=== PATIENT | female | born 1935 | race Caucasian/White ===

== ENCOUNTER 2023-10-02 15:27 | Outpatient (AMB) | payer OTHER, SELFPAY ==
--- NOTE | 2023-10-02 16:03 | A.OFFVIS_ITS ---
Intake Intake Visit Reasons: recurrent UTIs Intake Note: New Patient presents for initial visit for recurrent uti's Urology Medications: Oxybutynin Blood Thinner: none Metal Roaster Required: No Accompanied by: Self / Same As Patient Allergies Amoxicillin Allergy (Uncoded 10/02/23 22:44) Unknown Augmentin Allergy (Uncoded 10/02/23 22:44) Hives Medication List - Last Reconciled 10/02/23 by DALY Gillette-RUSTAM ascorbic acid (vitamin C) 1 g PO DAILY aspirin 81 mg PO DAILY cholecalciferol (vitamin D3) 125 mcg PO DAILY cranberry 500 mg PO DAILY d-mannose mg PO mecobalamin (vitamin B12) 3,000 mcg PO DAILY methenamine hippurate 1 g PO BID oxybutynin chloride ER 5 mg PO DAILY pravastatin 20 mg PO DAILY prednisolone acetate 1% drps ophthalmic (eye) sertraline mg PO yucca caps PO HPI HPI Comments History of Present Illness Details Yoselyn is a very pleasant 87-year-old female patient of . She has a past medical history of pyelonephritis, overactive bladder, osteoporosis, depression, nephrolithiasis, memory impairment, hyperparathyroidism, hyperlipidemia, breast cancer, balance disorder, recurrent urinary tract infections and abdominal aortic aneurysm. She presents to the office today as a new patient for recurrent urinary tract infections. In discussion with the patient today she reports to be doing and feeling well. She reports previously following up with [facility] however is looking to establish new urological care. She discusses having no urinary issues or concerns at this time however has a longstanding history of recurrent urinary tract infections and has since been on methenamine and vitamin-C which has helped substantially. She discusses her last urinary tract infection was in February of last year. She does report intermittent issues with overactive bladder however feels since being on oxybutynin 5 mg daily symptoms have improved. Discussed trial of other of medication given patient's age and beers criteria however patient declines at this time. This was discussed at length. She otherwise denies hematuria, dysuria, foul smelling urine, changes to urinary stream, flank pain, fever, and or chills. She is happy with her current voiding parameters. In office urinalysis results reviewed with the patient today. PVR 0 mL. She discusses typically her symptoms of urinary tract infections are hallucinations. She denies having had these in the last several months. She otherwise offers no other issues or concerns at this time. [facility] Medical History (Updated 10/02/23 @ 23:01 by FRANCISCO Gillette) Pyelonephritis Palpitations Overactive bladder Osteoporosis Major depression in partial remission Left ureteral stone Kidney stone Isolated memory impairment Impaired fasting glucose Hyperparathyroidism Hyperlipidemia History of breast cancer Fuchs' corneal dystrophy Balance disorder Abdominal aortic aneurysm Review of Systems Const Reports as per HPI Eyes Reports no additional complaints ENT Reports no additional complaints Card Reports as per HPI Resp Reports no additional complaints GI Reports no additional complaints Reports as per HPI Musc Reports as per HPI Neuro Reports as per HPI Psych Reports as per HPI Endo Reports as per HPI Jeffrey/Lymph Reports no additional complaints Aller/Immun Reports no additional complaints Physical Exam Const General: cooperative, healthy appearing, comfortable, no acute distress, well developed, alert and awake Orientation/consciousness: patient oriented x3 HEENT Head: Yes normal to inspection, Yes normocephalic and Yes atraumatic Ears: hearing grossly normal bilaterally Eyes General: appearance normal, both eyes and all related structures Neck Neck: Yes normal visual inspection and Yes trachea midline Chest Chest palpation & inspection: normal inspection of the chest Resp Effort & Inspection: normal respiratory effort and able to speak in complete sentences Cardio Rate: regular rate GI Inspection: Yes normal to inspection General: Yes no CVA tenderness Back/Spine/Pelvis Back: no CVA tenderness Skin General skin exam: no rashes or lesions noted Neuro General: patient oriented x3 Extrem General: Yes normal to inspection Psych Appearance: grossly normal and well kempt Mental Status: mental status grossly normal Speech and movement: Normal speech and movement present and Clear speech present Affect: normal affect Attitude: cooperative Thought process: Normal thought process present Thought content: Normal thought content present Insight: Fair insight present (Psych) Judgement: Fair judgement present (Psych) Office Procedures Post Void Residual Post Residual Void Post Void Residual (PVR): 0 [id number] Void Residual by ultrasound Results AMB Urinalysis, Automated UA Leukoctes 0 Malvin/uL Last Edit by Claudia Nielson on 10/02/23 16:19 UA Nitrite Negative Last Edit by Claudia Nielson on 10/02/23 16:19 UA Urobilinogen 0.2 mg/dL Last Edit by Claudia Nielson on 10/02/23 16:19 UA Protein 0 mg/dL Last Edit by Claudia Luosami on 10/02/23 16:19 UA pH 6.0 Last Edit by Claudia Luosami on 10/02/23 16:19 UA Blood 0 Jermaine/uL Last Edit by Claudia Luosami on 10/02/23 16:19 UA Specific Clio 1.015 Last Edit by Lucyamanuel Pujasami on 10/02/23 16:19 UA Ketone Negative Last Edit by Claudia Luosami on 10/02/23 16:19 UA Bilirubin 0 mg/dL Last Edit by Claudia Luosami on 10/02/23 16:19 UA Glucose 0 mg/dL Last Edit by Samjeet Pujasami on 10/02/23 16:19 Results Reviewed Results Reviewed: Laboratory Last Values Urine pH (Auto) 6.0 10/02/23 16:07 Specific Clio (Auto) 1.015 10/02/23 16:07 Urine Protein (Auto) 0 mg/dL 10/02/23 16:07 Glucose (UA)(Auto) 0 mg/dL 10/02/23 16:07 Urine Ketones (Auto) Negative 10/02/23 16:07 Urine Blood (Auto) 0 Jermaine/uL 10/02/23 16:07 Urine Nitrite (Auto) Negative 10/02/23 16:07 Urine Bilirubin (Auto) 0 mg/dL 10/02/23 16:07 Urine Urobilinogen (Auto) 0.2 mg/dL 10/02/23 16:07 Leukocyte Esterase (Auto) 0 Malvin/uL 10/02/23 16:07 Assessment & Plan Assessment & Plan (1) Recurrent urinary tract infection: Code(s): N39.0 - Urinary tract infection, site not specified (2) Kidney stone: Code(s): N20.0 - Calculus of kidney Plan In office urinalysis results reviewed with the patient today; as noted above. Patient currently denies any bothersome urinary issues or concerns. Discussed at length potential causes of nephrolithiasis as well as recurrent urinary tract infections. Continue methenamine, vitamin-C, and D mannose. Discuss trial of other overactive bladder medication given age and beers criteria however patient declines at this time; this was discussed at length. Discussed UTI prevention with D mannose supplement, vitamin-C, increasing fluid intake, behavioral therapy with timed voiding, perineal hygiene and postcoital voiding, and management of constipation with stool softeners and increased fiber intake. Discussed near future retroperitoneal ultrasound for further assessment evaluation and given patient's history of nephrolithiasis. Follow-up in 3 months with PVR; or sooner with any issues, concerns, and or questions. Orders: Orders AMB Post Void Residual by ultrasound Today Z13.9 - Encounter for screening, unspecified AMB Urinalysis Automated Today Z13.9 - Encounter for screening, unspecified Patient Instructions: The patient had an opportunity to ask questions regarding the treatment plan. All questions were answered. Physical exam, labs, and imaging were discussed and reviewed in detail. As well as risks, benefits, and discussion of treatment choices. No major barriers to understanding were identified. The patient expressed understanding and agreement with the above treatment plan. The patient was made aware they should contact our office by phone for worsening of their current condition, the appearance of new symptoms, or with any questions or concerns. Compliance is encouraged with any medications and follow up testing that is ordered. It is a privilege to be allowed the opportunity to participate in? your urological care.? Again, if you have any questions or concerns If you have any questions or concerns please do not hesitate to contact me. The office is [phone]. This note is constructed using voice recognition software. While every effort has been made to ensure accuracy global regulatory affairs manager errors may have been included. Yours sincerely, FRANCISCO Gillette Coding Level of Care Code New Pt Level 3 (38876) Diagnoses Recurrent urinary tract infection N39.0 Kidney stone N20.0 CPT Codes Post Residual Void - PVR CPT Code: 16377-Atrs Void Residual by ultrasound ([id number])
== END 2023-10-02 16:34 | disposition home or self-care (01) ==
PROVIDERS: PCP Physician Assistant; Visit Provider Nurse Practitioner Family
DX: N39.0 Urinary tract infection, site not specified (principal); N20.0 Calculus of kidney
CPT/HCPCS: 99203

== ENCOUNTER → 2023-10-02 15:27 | Outpatient (BNVA) | payer OTHER, SELFPAY | PROVIDERS: PCP Physician Assistant; Visit Provider Nurse Practitioner Family | DX: N39.0 Urinary tract infection, site not specified (principal); N20.0 Calculus of kidney | CPT/HCPCS: 51798; 81003 ==

== ENCOUNTER 2024-01-01 10:43 | Outpatient (AMB) | payer OTHER, SELFPAY ==
--- NOTE | 2024-01-01 10:47 | MHC.OFFVIS ---
Intake Visit Reasons: 3m/PVR Intake Note: Patient presents for follow up visit for recurrent uti's Urology Medications: Oxybutynin, methenamine, vitamin c Blood Thinner: aspirin PVR: 0ml's Associate Director Regulatory Affairs Required: No Accompanied by: Self / Same As Patient Allergies Amoxicillin Allergy (Uncoded 01/01/24 10:59) Unknown Augmentin Allergy (Uncoded 01/01/24 10:59) Hives Medication List - Last Reconciled 01/01/24 by DALY Gillette-RUSTAM ascorbic acid (vitamin C) 1 g PO DAILY aspirin 81 mg PO DAILY cholecalciferol (vitamin D3) 125 mcg PO DAILY cranberry 500 mg PO DAILY d-mannose mg PO mecobalamin (vitamin B12) 3,000 mcg PO DAILY oxybutynin chloride ER 5 mg PO DAILY pravastatin 20 mg PO DAILY prednisolone acetate 1% drps ophthalmic (eye) sertraline mg PO yucca caps PO HPI Comments Details: Yoselyn is a very pleasant 88-year-old female patient of Dr. Chowdary. She has a past medical history of pyelonephritis, overactive bladder, osteoporosis, depression, nephrolithiasis, memory impairment, hyperparathyroidism, hyperlipidemia, breast cancer, balance disorder, recurrent urinary tract infections and abdominal aortic aneurysm. She presents to the office today for a follow up of her recurrent UTIs. In discussion with the patient today she reports having stopped methenamine as she read the side effects and does not wish to take this medication. She continues with D mannose and vitamin-C. She is unsure if she has a urinary tract infection at this time. Unable to obtain urine for urinalysis and PVR 0 mL. Discussed obtaining urinalysis for further assessment and evaluation. She does report intermittent issues with overactive bladder however feels since being on oxybutynin 5 mg daily symptoms have improved. Discussed trial of other of medication given patient's age and beers criteria however patient declines at this time. This was discussed at length. She denies hematuria, dysuria, foul smelling urine, changes to urinary stream, flank pain, fever, and or chills. She is happy with her current voiding parameters. She discusses typically her symptoms of urinary tract infections are hallucinations and sticky pubic hairs. However, she reports since her initial UTI 4 years ago she now suffers from hallucinations as a baseline. She discusses since her last office visit here seeking emergency room care at which time she was diagnosed with colitis. She otherwise offers no other issues or concerns at this time. [facility] Medical History Pyelonephritis Palpitations Overactive bladder Osteoporosis Major depression in partial remission Left ureteral stone Kidney stone Isolated memory impairment Impaired fasting glucose Hyperparathyroidism Hyperlipidemia History of breast cancer Fuchs' corneal dystrophy Balance disorder Abdominal aortic aneurysm Review of Systems Const Reports as per HPI Eyes Reports no additional complaints ENT Reports no additional complaints Card Reports as per HPI Resp Reports no additional complaints GI Reports no additional complaints Reports as per HPI Musc Reports as per HPI Neuro Reports as per HPI Psych Reports as per HPI Endo Reports as per HPI Jeffrey/Lymph Reports no additional complaints Aller/Immun Reports no additional complaints Physical Exam Const General: cooperative, healthy appearing, comfortable, no acute distress, well developed, alert and awake Orientation/consciousness: patient oriented x3 HEENT Head: Yes normal to inspection, Yes normocephalic and Yes atraumatic Ears: hearing grossly normal bilaterally Eyes General: appearance normal, both eyes and all related structures Neck Neck: Yes normal visual inspection and Yes trachea midline Chest Chest palpation & inspection: normal inspection of the chest Resp Effort & Inspection: normal respiratory effort and able to speak in complete sentences Cardio Rate: regular rate GI Inspection: Yes normal to inspection General: Yes no CVA tenderness Back/Spine/Pelvis Back: no CVA tenderness Skin General skin exam: no rashes or lesions noted Neuro General: patient oriented x3 Extrem General: Yes normal to inspection Psych Appearance: grossly normal and well kempt Mental Status: mental status grossly normal Speech and movement: Normal speech and movement present and Clear speech present Affect: normal affect Attitude: cooperative Thought process: Normal thought process present Thought content: Normal thought content present Insight: Fair insight present (Psych) Judgement: Fair judgement present (Psych) Office Procedures Post Void Residual Post Residual Void Post Void Residual (PVR): 0 [id number] Void Residual by ultrasound Assessment & Plan Assessment & Plan (1) Recurrent urinary tract infection: Code(s): N39.0 - Urinary tract infection, site not specified Category: Medical Plan Unable to collect urine for urinalysis in office today; discussed obtaining urinalysis for further assessment evaluation; order placed; will await results for potential treatment. PVR 0 mL. Continue D mannose and vitamin-C. Will stop methenamine as patient does not wish to continue due to potential side effects. Discussed UTI prevention with D mannose supplement, vitamin-C, increasing fluid intake, behavioral therapy with timed voiding, perineal hygiene and postcoital voiding, and management of constipation with stool softeners and increased fiber intake. Discussed obtaining retroperitoneal ultrasound for further assessment evaluation; however patient declines at this time. Discussed potential near future in office cystoscopy for further assessment evaluation. Discussed possible near future microgen for further assessment and evaluation. Follow-up in 3 months with PVR; or sooner with any issues, concerns, and or questions. Orders: Orders UA CC w/rflx Micro + Cult Today N39.0 - Urinary tract infection, site not specified AMB Urinalysis Automated Today Z13.9 - Encounter for screening, unspecified AMB Post Void Residual by ultrasound Today N39.0 - Urinary tract infection, site not specified Patient Instructions: The patient had an opportunity to ask questions regarding the treatment plan. All questions were answered. Physical exam, labs, and imaging were discussed and reviewed in detail. As well as risks, benefits, and discussion of treatment choices. No major barriers to understanding were identified. The patient expressed understanding and agreement with the above treatment plan. The patient was made aware they should contact our office by phone for worsening of their current condition, the appearance of new symptoms, or with any questions or concerns. Compliance is encouraged with any medications and follow up testing that is ordered. It is a privilege to be allowed the opportunity to participate in? your urological care.? Again, if you have any questions or concerns If you have any questions or concerns please do not hesitate to contact me. The office is [phone]. This note is constructed using voice recognition software. While every effort has been made to ensure accuracy soyfreeze operator errors may have been included. Yours sincerely, FRANCISCO Gillette Coding Level of Care Code Est Pt Level 3 (87910) Diagnoses Recurrent urinary tract infection N39.0 CPT Codes Post Residual Void - PVR CPT Code: 23065-Aggp Void Residual by ultrasound ([id number])
== END 2024-01-01 11:19 | disposition home or self-care (01) ==
PROVIDERS: PCP Physician Assistant; Visit Provider Nurse Practitioner Family
DX: N39.0 Urinary tract infection, site not specified (principal)
CPT/HCPCS: 99213

== ENCOUNTER → 2024-01-01 10:43 | Outpatient (BNVA) | payer OTHER, SELFPAY | PROVIDERS: PCP Physician Assistant; Visit Provider Nurse Practitioner Family | DX: N39.0 Urinary tract infection, site not specified (principal) | CPT/HCPCS: 51798 ==

== ENCOUNTER 2024-04-08 10:56 | Outpatient (AMB) | payer OTHER, SELFPAY ==
--- NOTE | 2024-04-08 11:13 | A.OFFVIS_ITS ---
Intake Visit Reasons: 3M Follow Up-Microgen?/Multiple UTI Intake Note: Patient is present for Recurrent UTI Follow up Urology Med: Estradiol, Vitamin C, Oxybutynin Antibiotic Allergy: Amoxicillin Blood Thinner: Aspirin Tieing Machine Operator Required: No Allergies Amoxicillin Allergy (Uncoded 04/08/24 11:15) Unknown Augmentin Allergy (Uncoded 04/08/24 11:15) Hives HPI Comments Details: Cherry is a pleasant female. She is a patient of Dr. Chowdary. She is seen for the following urologic conditions - overactive bladder - nephrolithiasis - pyelonephritis Recurrent UTI pyelonephritis Continues with D Mannose and vitamin-C Discussed use of estrogen Effective bladder emptying 12 month follow-up nurse-practitioner [facility] Medical History Pyelonephritis Palpitations Overactive bladder Osteoporosis Major depression in partial remission Left ureteral stone Kidney stone Isolated memory impairment Impaired fasting glucose Hyperparathyroidism Hyperlipidemia History of breast cancer Fuchs' corneal dystrophy Balance disorder Abdominal aortic aneurysm Review of Systems Const Denies chills and Denies fever(s) Card Reports no additional complaints and Denies syncope Resp Denies cough GI Denies abdominal pain and Denies heartburn Reports as per HPI and Denies change in libido Neuro Denies syncope Psych Denies change in libido Endo Denies change in libido Physical Exam Const General: cooperative, healthy appearing, comfortable and no acute distress Orientation/consciousness: patient oriented x3 HEENT Face and sinus: Yes normal facial exam Mouth: moist mucous membranes Neck Neck: Yes normal visual inspection, Yes full ROM and Yes trachea midline Chest Chest palpation & inspection: normal inspection of the chest Resp Effort & Inspection: normal respiratory effort, able to speak in complete sentences and no respiratory distress GI Inspection: Yes normal to inspection Back/Spine/Pelvis Cervical Spine: normal cervical lordosis Thoracic/Lumbar Spine: thoracic and lumbar spine normal to inspection Skin General skin exam: no rashes or lesions noted Neuro General: patient oriented x3, gait normal, tone normal and moves all extremities Extrem General: Yes normal to inspection and Yes capillary refill normal Assessment & Plan Assessment & Plan (1) Kidney stone: Code(s): N20.0 - Calculus of kidney Category: Medical (2) Recurrent urinary tract infection: Code(s): N39.0 - Urinary tract infection, site not specified Category: Medical Plan Six-month follow-up nurse-practitioner Orders: Orders AMB Urinalysis Automated 04/08/24 Z13.9 - Encounter for screening, unspecified Patient Instructions: Imaging studies, laboratory and physical exam results were discussed and reviewed in detail. No major barriers to patient understanding were identified. An opportunity to ask questions regarding the treatment plan was provided. All questions were answered. The patient expressed understanding and agreement with the above treatment plan. The patient is aware they should contact our office by phone for worsening of their current condition or the appearance of new urologic symptoms. Compliance is encouraged with any medications and followup testing that is ordered. It is a privilege to participate in the urologic care of your patient. If you have any questions or concerns regarding treatment for the above conditions, or other urologic issues, please do not hesitate to contact me. The office telephone contact is [phone]. This note is constructed using voice recognition software. While every effort has been made to ensure accuracy engineered wood designer errors may have been included. Yours sincerely, Dr Joaquin Almodovar MD, [facility] - Urology Providers of Expert, Compassionate Care for the Genitourinary System Coding Level of Care Code Est Pt Level 3 (32299) Diagnoses Kidney stone N20.0 Recurrent urinary tract infection N39.0
== END 2024-04-08 11:47 | disposition home or self-care (01) ==
LOC: HO.HUSH 10:56
PROVIDERS: PCP Physician Assistant; Visit Provider Urology
DX: N20.0 Calculus of kidney (principal); N39.0 Urinary tract infection, site not specified
CPT/HCPCS: 99213

== ENCOUNTER → 2024-04-08 10:56 | Outpatient (BNVA) | payer OTHER, SELFPAY | PROVIDERS: PCP Physician Assistant; Visit Provider Urology ==

== ENCOUNTER 2024-11-05 14:40 | Outpatient (AMB) | payer OTHER, SELFPAY ==
--- NOTE | 2024-11-05 14:59 | A.OFFVIS_ITS ---
Intake Visit Reasons: 6m follow up Intake Note: Patient is present for Recurrent UTI Follow up Urology Med: Estradiol Cream and Vitamin C Antibiotic Allergy: Amoxicillin Blood Thinner: Aspirin PVR: 0ml's Tourist Guide Required: No Accompanied by: Self / Same As Patient Allergies Amoxicillin Allergy (Uncoded 11/05/24 15:47) Unknown Augmentin Allergy (Uncoded 11/05/24 15:47) Hives Medication List - Last Reconciled 11/05/24 by DALY Gillette-RUSTAM ascorbic acid (vitamin C) 1 g PO DAILY aspirin 81 mg PO DAILY cranberry 500 mg PO DAILY estradiol 0.01%(0.1mg/gram) vaginally 3 times a week; pea sized amount to urethra 3 times a week 30 days mecobalamin (vitamin B12) 3,000 mcg PO DAILY pravastatin 20 mg PO DAILY prednisolone acetate 1% drps ophthalmic (eye) sertraline mg PO yucca caps PO HPI Comments Details: Yoselyn is a very pleasant 88-year-old female patient of Dr. Chowdary. She has a past medical history of pyelonephritis, overactive bladder, osteoporosis, depression, nephrolithiasis, memory impairment, hyperparathyroidism, hyperlipidemia, breast cancer, balance disorder, recurrent urinary tract infections and abdominal aortic aneurysm. She presents to the office today for a follow up of her recurrent UTIs, nephrolithiasis, and pyelonephritis. In discussion with the patient today she reports to be doing and feeling well. She reports compliance with Estrace cream as prescribed. In office urinalysis results reviewed with the patient today 1+ leukocytes positive nitrates. Patient denies any UTI like symptoms. Microscopic hematuria noted. We discussed at length potential causes of microscopic hematuria. PVR 0 mL. We discussed obtaining imaging for surveillance monitoring however patient declines at this time and does not feel she has any bothersome urinary issues or concerns. She denies hematuria, dysuria, foul smelling urine, changes to urinary stream, flank pain, fever, and or chills. She is happy with her current voiding parameters. She discusses typically her symptoms of urinary tract infections are hallucinations and sticky pubic hairs. She otherwise offers no other issues or concerns at this time. [facility] Medical History Pyelonephritis Palpitations Overactive bladder Osteoporosis Major depression in partial remission Left ureteral stone Kidney stone Isolated memory impairment Impaired fasting glucose Hyperparathyroidism Hyperlipidemia History of breast cancer Fuchs' corneal dystrophy Balance disorder Abdominal aortic aneurysm Review of Systems Const Reports as per HPI Eyes Reports no additional complaints ENT Reports no additional complaints Card Reports as per HPI Resp Reports no additional complaints GI Reports no additional complaints Reports as per HPI Musc Reports as per HPI Neuro Reports as per HPI Psych Reports as per HPI Endo Reports as per HPI Jeffrey/Lymph Reports no additional complaints Aller/Immun Reports no additional complaints Physical Exam Const General: cooperative, healthy appearing, comfortable, no acute distress, well developed, alert and awake Nutritional Appearance: average body habitus Orientation/consciousness: patient oriented x3 Limitations: ambulation with cane HEENT Head: Yes normal to inspection, Yes normocephalic and Yes atraumatic Ears: hearing grossly normal bilaterally Eyes General: appearance normal, both eyes and all related structures Neck Neck: Yes normal visual inspection and Yes trachea midline Chest Chest palpation & inspection: normal inspection of the chest Resp Effort & Inspection: normal respiratory effort and able to speak in complete sentences Cardio Rate: regular rate GI Inspection: Yes normal to inspection General: Yes no CVA tenderness Back/Spine/Pelvis Back: no CVA tenderness Skin General skin exam: no rashes or lesions noted Neuro General: patient oriented x3 Extrem General: Yes normal to inspection Psych Appearance: grossly normal and well kempt Mental Status: mental status grossly normal Speech and movement: Normal speech and movement present and Clear speech present Affect: normal affect Attitude: cooperative Thought process: Normal thought process present Thought content: Normal thought content present Insight: Fair insight present (Psych) Judgement: Fair judgement present (Psych) Office Procedures Post Void Residual Post Residual Void Post Void Residual (PVR): 0 25005-Mrqk Void Residual by ultrasound Results AMB Urinalysis, Automated UA Leukoctes 15 Malvin/uL Last Edit by Claudia Nielson on 11/05/24 15:24 UA Nitrite Positive Last Edit by Claudia Nielson on 11/05/24 15:24 UA Urobilinogen 0.2 mg/dL Last Edit by Claudia Nielson on 11/05/24 15:24 UA Protein 15 mg/dL Last Edit by Claudia Nielson on 11/05/24 15:24 UA pH 5.5 Last Edit by Claudia Nielson on 11/05/24 15:24 UA Blood 80 Jermaine/uL Last Edit by Claudia Nielson on 11/05/24 15:24 UA Specific [place] 1.030 Last Edit by Claudia Nielson on 11/05/24 15:24 UA Ketone Negative Last Edit by Claudia Nielson on 11/05/24 15:24 UA Bilirubin 0 mg/dL Last Edit by Claudia Nielson on 11/05/24 15:24 UA Glucose 0 mg/dL Last Edit by Claudia Nielson on 11/05/24 15:24 Results Reviewed Results Reviewed: Laboratory Last Values Urine pH (Auto) 5.5 11/05/24 15:23 Specific [place] (Auto) 1.030 11/05/24 15:23 Urine Protein (Auto) 15 mg/dL 11/05/24 15:23 Glucose (UA)(Auto) 0 mg/dL 11/05/24 15:23 Urine Ketones (Auto) Negative 11/05/24 15:23 Urine Blood (Auto) 80 Jermaine/uL 11/05/24 15:23 Urine Nitrite (Auto) Positive 11/05/24 15:23 Urine Bilirubin (Auto) 0 mg/dL 11/05/24 15:23 Urine Urobilinogen (Auto) 0.2 mg/dL 11/05/24 15:23 Leukocyte Esterase (Auto) 15 Malvin/uL 11/05/24 15:23 Assessment & Plan Assessment & Plan (1) Kidney stone: Code(s): N20.0 - Calculus of kidney Category: Medical (2) Recurrent urinary tract infection: Code(s): N39.0 - Urinary tract infection, site not specified Category: Medical Plan In office urinalysis results reviewed with the patient today; as noted above; will send for urine cytology. PVR 0 ml's. Continue Estrace cream as discussed and prescribed; refill provided. Patient currently denies any bothersome urinary issues or concerns. She reports be happy with current voiding parameters. We discussed surveillance monitoring of history of nephrolithiasis will obtain retroperitoneal ultrasound for further assessment evaluation. We discussed importance of adequate hydration relation to nephrolithiasis as well as history of recurrent urinary tract infections. Follow-up in 6 months with PVR; or sooner with any issues, concerns, and or questions. Orders: Orders AMB Post Void Residual by ultrasound Today N39.0 - Urinary tract infection, site not specified AMB Urinalysis Automated Today Z13.9 - Encounter for screening, unspecified US retroperitoneal comp Today N20.0 - Calculus of kidney, N39.0 - Urinary tract infection, site not specified Medications: Changed From estradiol 0.01%(0.1mg/gram) vaginally 3 times a week; pea sized amount to urethra 3 times a week 30 days 42.5 grams 3RF To estradiol 0.01%(0.1mg/gram) vaginally 3 times a week; pea sized amount to urethra 3 times a week 90 days 42.5 grams 3RF Patient Instructions: The patient had an opportunity to ask questions regarding the treatment plan. All questions were answered. Physical exam, labs, and imaging were discussed and reviewed in detail. As well as risks, benefits, and discussion of treatment choices. No major barriers to understanding were identified. The patient expressed understanding and agreement with the above treatment plan. The patient was made aware they should contact our office by phone for worsening of their current condition, the appearance of new symptoms, or with any questions or concerns. Compliance is encouraged with any medications and follow up testing that is ordered. It is a privilege to be allowed the opportunity to participate in? your urological care.? Again, if you have any questions or concerns If you have any questions or concerns please do not hesitate to contact me. The office is [phone]. This note is constructed using voice recognition software. While every effort has been made to ensure accuracy parking lot laborer errors may have been included. Yours sincerely, FRANCISCO Gillette Coding Level of Care Code Est Pt Level 3 (44551) Complex EM visit Add On G2211 Diagnoses Kidney stone N20.0 Recurrent urinary tract infection N39.0 CPT Codes Post Residual Void - PVR CPT Code: 75092-Unji Void Residual by ultrasound ([id number])
== END 2024-11-05 15:42 | disposition home or self-care (01) ==
LOC: HO.HUSH 14:41
PROVIDERS: PCP Physician Assistant; Visit Provider Nurse Practitioner Family
DX: N20.0 Calculus of kidney (principal); N39.0 Urinary tract infection, site not specified; Z13.9 Encounter for screening, unspecified
CPT/HCPCS: 99213; G2211

== ENCOUNTER 2024-11-05 14:40 | Outpatient (REF) | payer OTHER, SELFPAY ==
[2024-11-05 16:55] LABS: Urine Cytology See Pathology rpt
== END 2024-11-05 14:41 | disposition home or self-care (01) ==
LOC: HO.LNP 14:40
PROVIDERS: PCP Physician Assistant; Visit Provider Nurse Practitioner Family
DX: Z13.9 Encounter for screening, unspecified (principal)
CPT/HCPCS: 51798; 81003; 88112

== ENCOUNTER 2025-04-28 11:19 | Outpatient (REF) | payer MEDICARE, SELFPAY ==
--- NOTE | ~2025-04-28 | US_ITS ---
CLINICAL HISTORY: N39.0 - Urinary tract infection, site not specified US Renal Comparison: None provided Findings: Right kidney normal size and echotexture, 9.6 cm length. Left kidney normal size and echotexture, 9.6 cm length. No hydronephrosis of either kidney. Normal color Doppler. Urinary bladder is unremarkable. Prevoid volume one hundred ninety-nine mL. Postvoid volume 30 mL. IMPRESSION: Unremarkable kidneys without hydronephrosis. This document has been electronically signed by: Anais Cunningham MD on 04/29/2025 09:20:34
== END 2025-04-28 11:20 | disposition home or self-care (01) ==
LOC: HO.US 11:19
PROVIDERS: PCP Physician Assistant; Visit Provider Nurse Practitioner Family
DX: N20.0 Calculus of kidney (principal); N39.0 Urinary tract infection, site not specified
CPT/HCPCS: 76770

== ENCOUNTER → 2025-04-28 11:24 | Outpatient (BNV) | payer MEDICARE, SELFPAY | PROVIDERS: PCP Physician Assistant; Visit Provider Radiology Diagnostic Radiology | DX: N39.0 Urinary tract infection, site not specified (principal) | CPT/HCPCS: 76770 ==

== ENCOUNTER 2025-05-06 14:26 | Outpatient (REF) | payer OTHER, SELFPAY | END 2025-05-06 14:27 | disposition home or self-care (01) | LOC: HO.LAB 14:26 | PROVIDERS: PCP Physician Assistant; Visit Provider Nurse Practitioner Family | DX: N39.0 Urinary tract infection, site not specified (principal); Z13.89 Encounter for screening for other disorder; Z79.82 Long term (current) use of aspirin | CPT/HCPCS: 51798; 81003; 87086; 87088; 87186 ==

== ENCOUNTER 2025-05-06 14:26 | Outpatient (AMB) | payer OTHER, SELFPAY ==
--- OUTSIDE RECORDS SUMMARY | 2018-11-20 20:00 | XMS_ITS | Continuity of Care Document ---
Author Organization [facility] Address [address] [place] [phone] Phone Care Team Providers Care Bander Name Role Phone RCM, Rendering Unavailable Unavailable Allergies, Adverse Reactions, Alerts Substance Reaction Status Criticality No Known Drug Allergies Active No I nformation Advance Directives Directive Yes / No Effective Date File Name No Information Encounters Encounter Description Practice Location Reason(s) For Visit Diagnoses Date Provider Providers Copied on Encounter [facility], [address] [place] [address], [id number] , [place] tel: [phone] [facility] Location Corneal transplant statusVitreous degeneration, right eyePresence of intraocular lensDry eye syndrome of bilateral lacrimal glands Oct- 9 [facility] . [address] [place] [address], [id number], [place]. tel: [phone] [facility], [address] [place] [address], [id number] , [place] tel: [phone] [facility] Location Corneal transplant statusEndothelial corneal dystrophyDry eye syndrome of bilateral lacrimal glandsVitreous degeneration, right eyePresence of intraocular lens Oct- 9 [facility] . [address] [place] [address], [id number], [place]. tel: [phone] [facility], [address] [place] [address], [id number] , [place] tel: [phone] [facility] Location Presence of intraocular lensVitreous degeneration, right eyeCorneal transplant statusEndothelial corneal dystrophyDry eye syndrome of bilateral lacrimal glands 9 [facility] . [address], [place], [address], [place]. tel:[phone] [facility], [address], [place], [place], [id number] , [place] tel:[phone] [facility] Vitreous degeneration, right eyePresence of intraocular lensDry eye syndrome of bilateral lacrimal glandsEndothelial corneal dystrophyCorneal transplant status 9 [facility] . [address], [place], [address], [place]. tel:[phone] [facility], [address], [place], [place], [id number] , [place] tel:[phone] [facility] Vitreous degeneration, right eyeDry eye syndrome of bilateral lacrimal glandsPresence of intraocular lensEndothelial corneal dystrophyCorneal transplant status 9 [facility] . [address] [place], [address], [place]. tel:[phone] [facility], [address], [place], [place], [id number] , [place] tel:[phone] [facility] Endothelial corneal dystrophyCorneal transplant statusVitreous degeneration, right eyeDry eye syndrome of bilateral lacrimal glandsPresence of intraocular lens 9 [facility] . [address] [place], [address], [place]. tel:[phone] [facility], [address], [place], [place], [id number] , [place] tel: [phone] [facility] Location Presence of intraocular lensDry eye syndrome of bilateral lacrimal glandsVitreous degeneration, right eyeCorneal transplant statusEndothelial corneal dystrophy 9 [facility] . [address] [place], [address], [place]. tel:[phone] [facility], [address] [place], [id number] , [place] tel:[phone] [facility] Location Corneal transplant statusDry eye syndrome of bilateral lacrimal glandsEndothelial corneal dystrophyPresence of intraocular lensVitreous degeneration, right eye 8 [facility] . [address] [place] [address], [id number], [place]. tel: [phone] [facility], [address] [place] [address], [id number] , [place] tel: [phone] [facility] Dry eye syndrome of bilateral lacrimal glandsVitreous degeneration, right eyeCorneal transplant statusEndothelial corneal dystrophyPresence of intraocular lensInjury of conjunctiva and corneal abrasion without foreign body, left eye, initial encounterAge-related nuclear cataract, left eye 8 [facility] . [address] [place] [address], [address], [place]. tel: [phone] [facility], [address] [place] [address], [id number] , [place] tel: [phone] [facility] Endothelial corneal dystrophyDry eye syndrome of bilateral lacrimal glandsAge-related nuclear cataract, left eyePresence of intraocular lensInjury of conjunctiva and corneal abrasion without foreign body, left eye, initial encounterVitreous degeneration, right eye 201 5 [facility] . [address] [place] [address], [address], [place]. tel: [phone] [facility], [address] [place] [address], [id number] , [place] tel: [phone] [facility] Endothelial corneal dystrophyVitreous degeneration, right eyeAge-related nuclear cataract, left eyePresence of intraocular lens 4 [facility] . [address] [place] [address], [address], [place]. tel: [phone] [facility], [address] [place] [address], [id number] , [place] tel: [phone] [facility] Dry Eye SyndromeCorneal Dystrophy Endo GuttataDry eye syndrome of bilateral lacrimal glands 4 [facility] . [address] [place], [address], [place]. tel:[phone] [facility], [address], [place], [place], [id number] , [place] tel:[phone] [facility] Endothelial corneal dystrophyCataract Nuclear ScleroticLattice DegenerationPresence of intraocular lensPseudophakiaAge-r elated nuclear cataract, left eyeCorneal Dystrophy Endo Guttata 6-201 3 [facility] . [address] [place], [address], [place]. tel:[phone] [facility], [address] [facility], [place], [place], [id number] , [place] tel:[phone] [facility] PseudophakiaCataract Nuclear ScleroticCorneal Dystrophy Endo Guttata [address] [facility] [place], [address], [place]. tel:[phone] [facility], [address] [place], [place], [id number] , [place] tel:[phone] [facility] Dry eye syndrome of bilateral lacrimal glandsInjury of conjunctiva and corneal abrasion without foreign body, left eye, initial encounterEndothelial corneal dystrophy 3 [facility] . [address] [place], [address], [place]. tel:[phone] [facility], [address] [place], [place], [id number] , [place] tel:[phone] [facility] Corneal Dystrophy Endo GuttataInjury of conjunctiva and corneal abrasion without foreign body, left eye, initial encounter [address] [facility] [place], [address], [place]. tel:[phone] [facility], [address] [place], [id number] , [place] tel:[phone] [facility] PseudophakiaCataract Nuclear ScleroticCorneal Dystrophy Endo Guttata Oct-1 0-201 2 [facility] . [address] [place] [address], [address], [place]. tel: [phone] [facility], [address] [place] [address], [id number] , [place] tel: [phone] [facility] Cataract Nuclear ScleroticVitreous Detachment DegeneratCorneal Dystrophy Endo GuttataDM Cntrled No CompPseudophakiaCorne al Edema/ Decomp Unspec Mar- 7-201 1 [facility] . [address] [place] [address], [address], [place]. tel: [phone] [facility], [address] [place] [address], [id number] , [place] tel: [phone] [facility] Corneal Edema/ Decomp UnspecCorneal Dystrophy Endo GuttataPseudophakiaCa taract Nuclear ScleroticDM Cntrled No Comp Mar-0 9-201 1 [facility] . [address] [place] [address], [address], [place]. tel: [phone] [facility], [address] [place] [address], [id number] , [place] tel: [phone] [facility] Corneal Dystrophy Endo GuttataDM Cntrled No CompPseudophakiaCatar act Nuclear Sclerotic Mar- 1-201 0 [facility] . [address] [place] [address], [address], [place]. tel: [phone] Family History Family Member Type Diagnosis Age At Onset No Information Payers Payer name Insurance type Covered green party ID Authoriza tion(s) No Information Social History Type Description Quantity Date Captured Comments Alcohol Use Details Unknown Caffeine Use Details Unknown Tobacco Use Status Never smoker (Never Smoked) Smoking Status Never smoker (Never Smoked) Non-Smoking Tobacco Use Details : No Details Available : No Details Available Sex Female Chief Complaint And Reason For Visit No Information Reason For Referral Reason For Referral No Information History Of Present Illness Encounter Date Complaint History Of Prese nt Illness No Information Functional Status Date Functional Assessmen t No Information Instructions Date Instruction Additional Infor carol Impression/Plan Related to Diagn osis Description: Pseudophakia, both eyes \nDiagnosis Code: V43.1 Impression/Plan Related to Diagn osis Description: Posterior vitreous detachment of right eye \nDiagnosis Code: 379.21 Impression/Plan Related to Diagn osis Description: Bilateral dry eyes \nDiagnosis Code: 375.15 Impression/Plan Related to Diagn osis Description: History of Descemet membrane endothelial keratoplasty (DMEK) \nDiagnosis Code: V42.5 Impression/Plan Related to Diagn osis Description: Pseudophakia, both eyes \nDiagnosis Code: V43.1 Impression/Plan Related to Diagn osis Description: Posterior vitreous detachment of right eye \nDiagnosis Code: 379.21 Impression/Plan Related to Diagn osis Description: Fuch's endothelial dystrophy \nDiagnosis Code: 371.57 Impression/Plan Related to Diagn osis Description: Bilateral dry eyes \nDiagnosis Code: 375.15 Impression/Plan Related to Diagn osis Description: History of Descemet membrane endothelial keratoplasty (DMEK) \nDiagnosis Code: V42.5 Impression/Plan Related to Diagn osis Description: Pseudophakia, both eyes \nDiagnosis Code: V43.1 Impression/Plan Related to Diagn osis Description: Posterior vitreous detachment of right eye \nDiagnosis Code: 379.21 Impression/Plan Related to Diagn osis Description: Fuch's endothelial dystrophy \nDiagnosis Code: 371.57 Impression/Plan Related to Diagn osis Description: Bilateral dry eyes \nDiagnosis Code: 375.15 Impression/Plan Related to Diagn osis Description: History of Descemet membrane endothelial keratoplasty (DMEK) \nDiagnosis Code: V42.5 Impression/Plan Related to Diagn osis Description: Fuch's endothelial dystrophy \nDiagnosis Code: 371.57 Impression/Plan Related to Diagn osis Description: Bilateral dry eyes \nDiagnosis Code: 375.15 Impression/Plan Related to Diagn osis Description: History of Descemet membrane endothelial keratoplasty (DMEK) \nDiagnosis Code: V42.5 Impression/Plan Related to Diagn osis Description: Pseudophakia, both eyes \nDiagnosis Code: V43.1 Impression/Plan Related to Diagn osis Description: Posterior vitreous detachment of right eye \nDiagnosis Code: 379.21 Impression/Plan Related to Diagn osis Description: Posterior vitreous detachment of right eye \nDiagnosis Code: 379.21 Impression/Plan Related to Diagn osis Description: History of Descemet's stripping endothelial keratoplasty (DSEK) \nDiagnosis Code: V42.5 Impression/Plan Related to Diagn osis Description: Fuch's endothelial dystrophy \nDiagnosis Code: 371.57 Impression/Plan Related to Diagn osis Description: Bilateral dry eyes \nDiagnosis Code: 375.15 Impression/Plan Related to Diagn osis Description: Pseudophakia, both eyes \nDiagnosis Code: V43.1 Impression/Plan Related to Diagn osis Description: Pseudophakia, both eyes \nDiagnosis Code: V43.1 Impression/Plan Related to Diagn osis Description: Posterior vitreous detachment of right eye \nDiagnosis Code: 379.21 Impression/Plan Related to Diagn osis Description: History of Descemet's stripping endothelial keratoplasty (DSEK) \nDiagnosis Code: V42.5 Impression/Plan Related to Diagn osis Description: Fuch's endothelial dystrophy \nDiagnosis Code: 371.57 Impression/Plan Related to Diagn osis Description: Bilateral dry eyes \nDiagnosis Code: 375.15 Impression/Plan Related to Diagn osis Description: Pseudophakia, both eyes \nDiagnosis Code: V43.1 Impression/Plan Related to Diagn osis Description: Posterior vitreous detachment of right eye \nDiagnosis Code: 379.21 Impression/Plan Related to Diagn osis Description: History of Descemet's stripping endothelial keratoplasty (DSEK) \nDiagnosis Code: V42.5 Impression/Plan Related to Diagn osis Description: Fuch's endothelial dystrophy \nDiagnosis Code: 371.57 Impression/Plan Related to Diagn osis Description: Bilateral dry eyes \nDiagnosis Code: 375.15 Impression/Plan Related to Diagn osis Description: Pseudophakia, both eyes \nDiagnosis Code: V43.1 Impression/Plan Related to Diagn osis Description: Posterior vitreous detachment of right eye \nDiagnosis Code: 379.21 Impression/Plan Related to Diagn osis Description: History of Descemet's stripping endothelial keratoplasty (DSEK) \nDiagnosis Code: V42.5 Impression/Plan Related to Diagn osis Description: DRY EYE SYNDROME OF BOTH LACRIMAL GLANDS \nDiagnosis Code: 375.15 Impression/Plan Related to Diagn osis Description: Fuch's endothelial dystrophy \nDiagnosis Code: 371.57 Impression/Plan Related to Diagn osis Description: Bilateral dry eyes \nDiagnosis Code: 375.15 Impression/Plan Related to Diagn osis Description: History of cornea transplant \nDiagnosis Code: V42.5 Impression/Plan Related to Diagn osis Description: INJURY OF CONJUNCTIVA AND CORNEAL ABRASION OF LEFT EYE WITHOUT FOREIGN BODY \nDiagnosis Code: 918.1 Impression/Plan Related to Diagn osis Description: Fuch's endothelial dystrophy \nDiagnosis Code: 371.57 Impression/Plan Related to Diagn osis Description: AGE-RELATED NUCLEAR CATARACT OF LEFT EYE \nDiagnosis Code: 366.16 Impression/Plan Related to Diagn osis Description: Pseudophakia, both eyes \nDiagnosis Code: V43.1 Impression/Plan Related to Diagn osis Description: Posterior vitreous detachment of right eye \nDiagnosis Code: 379.21 Impression/Plan Related to Diagn osis Description: PSEUDOPHAKIA OF RIGHT EYE \nDiagnosis Code: V43.1 Impression/Plan Related to Diagn osis Description: ENDOTHELIAL CORNEAL DYSTROPHY \nDiagnosis Code: 371.57 Impression/Plan Related to Diagn osis Description: AGE-RELATED NUCLEAR CATARACT OF LEFT EYE \nDiagnosis Code: 366.16 Impression/Plan Related to Diagn osis Description: PVD, RIGHT EYE \nDiagnosis Code: 379.21 Impression/Plan Related to Diagn osis Description: INJURY OF CONJUNCTIVA AND CORNEAL ABRASION OF LEFT EYE WITHOUT FOREIGN BODY \nDiagnosis Code: 918.1 Impression/Plan Related to Diagn osis Description: DRY EYE SYNDROME OF BOTH LACRIMAL GLANDS \nDiagnosis Code: 375.15 Impression/Plan Related to Diagn osis Description: PVD, RIGHT EYE \nDiagnosis Code: 379.21 Impression/Plan Related to Diagn osis Description: Fuch's endothelial dystrophy \nDiagnosis Code: 371.57 Impression/Plan Related to Diagn osis Description: Pseudophakia of right eye \nDiagnosis Code: V43.1 Impression/Plan Related to Diagn osis Description: Age-related nuclear cataract of left eye \nDiagnosis Code: 366.16 Impression/Plan Related to Diagn osis Description: BASILIA TEAR FILM INSUFFICIENCY (UNSPECIFIED) OU \nDiagnosis Code: 375.15 Impression/Plan Related to Diagn osis Description: DRY EYE SYNDROME OF BOTH LACRIMAL GLANDS \nDiagnosis Code: 375.15 Impression/Plan Related to Diagn osis Description: DYSTROPHY, ENDOTHELIAL CORNEAL OU \nDiagnosis Code: 371.57 Impression/Plan Related to Diagn osis Description: ENDOTHELIAL CORNEAL DYSTROPHY \nDiagnosis Code: 371.57 Impression/Plan Related to Diagn osis Description: PSEUDOPHAKIA OF RIGHT EYE \nDiagnosis Code: V43.1 Impression/Plan Related to Diagn osis Description: AGE-RELATED NUCLEAR CATARACT OF LEFT EYE \nDiagnosis Code: 366.16 Impression/Plan Related to Diagn osis Description: DEGENERATION, LATTICE, RETINA OD \nDiagnosis Code: 362.63 Impression/Plan Related to Diagn osis Description: LENS REPLACEMENT NEC OD \nDiagnosis Code: V43.1 Impression/Plan Related to Diagn osis Description: CATARACT, SENILE NUCLEAR OS \nDiagnosis Code: 366.16 Impression/Plan Related to Diagn osis Description: DYSTROPHY, ENDOTHELIAL CORNEAL OU ( FUCH`S) OU \nDiagnosis Code: 371.57 Impression/Plan Related to Diagn osis Description: LENS REPLACEMENT NEC OD \nDiagnosis Code: V43.1 Impression/Plan Related to Diagn osis Description: CATARACT, SENILE NUCLEAR OS \nDiagnosis Code: 366.16 Impression/Plan Related to Diagn osis Description: DYSTROPHY, ENDOTHELIAL CORNEAL OU \nDiagnosis Code: 371.57 Impression/Plan Related to Diagn osis Description: DRY EYE SYNDROME OF BOTH LACRIMAL GLANDS \nDiagnosis Code: 375.15 Impression/Plan Related to Diagn osis Description: INJURY OF CONJUNCTIVA AND CORNEAL ABRASION OF LEFT EYE WITHOUT FOREIGN BODY \nDiagnosis Code: 918.1 Impression/Plan Related to Diagn osis Description: ENDOTHELIAL CORNEAL DYSTROPHY \nDiagnosis Code: 371.57 Impression/Plan Related to Diagn osis Description: INJURY OF CONJUNCTIVA AND CORNEAL ABRASION OF LEFT EYE WITHOUT FOREIGN BODY \nDiagnosis Code: 918.1 Impression/Plan Related to Diagn osis Description: DYSTROPHY, ENDOTHELIAL CORNEAL OU \nDiagnosis Code: 371.57 Impression/Plan Related to Diagn osis Description: LENS REPLACEMENT NEC OD \nDiagnosis Code: V43.1 Impression/Plan Related to Diagn osis Description: CATARACT, SENILE NUCLEAR OS \nDiagnosis Code: 366.16 Impression/Plan Related to Diagn osis Description: DYSTROPHY, ENDOTHELIAL CORNEAL OU \nDiagnosis Code: 371.57 Impression/Plan Related to Diagn osis Description: LENS REPLACEMENT NEC OD \nDiagnosis Code: V43.1 Impression/Plan Related to Diagn osis Description: PVD VITREOUS DEGENERATION OD \nDiagnosis Code: 379.21 Impression/Plan Related to Diagn osis Description: DIABETES, NIDDM, TYPE II,NO COMPL. CONTROLL OU \nDiagnosis Code: 250.00 Impression/Plan Related to Diagn osis Description: CATARACT, SENILE NUCLEAR OS \nDiagnosis Code: 366.16 Impression/Plan Related to Diagn osis Description: EDEMA, CORNEAL NOS OD \nDiagnosis Code: 371.20 Impression/Plan Related to Diagn osis Description: DYSTROPHY, ENDOTHELIAL CORNEAL OU \nDiagnosis Code: 371.57 Impression/Plan Related to Diagn osis Description: LENS REPLACEMENT NEC OD \nDiagnosis Code: V43.1 Impression/Plan Related to Diagn osis Description: DIABETES, NIDDM, TYPE II,NO COMPL. CONTROLL OU \nDiagnosis Code: 250.00 Impression/Plan Related to Diagn osis Description: EDEMA, CORNEAL NOS OD \nDiagnosis Code: 371.20 Impression/Plan Related to Diagn osis Description: DYSTROPHY, ENDOTHELIAL CORNEAL OU \nDiagnosis Code: 371.57 Impression/Plan Related to Diagn osis Description: CATARACT, SENILE NUCLEAR OS \nDiagnosis Code: 366.16 Impression/Plan Related to Diagn osis Description: LENS REPLACEMENT NEC OD \nDiagnosis Code: V43.1 Impression/Plan Related to Diagn osis Description: CATARACT, SENILE NUCLEAR OS \nDiagnosis Code: 366.16 Impression/Plan Related to Diagn osis Description: DIABETES, NIDDM, TYPE II,NO COMPL. CONTROLL OU \nDiagnosis Code: 250.00 Impression/Plan Related to Diagn osis Description: DYSTROPHY, ENDOTHELIAL CORNEAL OU \nDiagnosis Code: 371.57 Assessments Type Assessment Date No Information Patient Care Teams Name Effective Dates (start - stop) Status Members No Information
--- NOTE | 2025-05-06 14:27 | A.OFFVIS_ITS ---
Intake Visit Reasons: 6m/PVR Intake Note: Patient is present for 6M/PVR Urology Medication:ESTRADIOL Antibiotic Allergy:AMOXICLLIN Blood Thinner:ASPIRIN TODAY'S PVR:9ML'S Materials Analyst Required: No Allergies Amoxicillin Allergy (Uncoded 05/06/25 21:31) Unknown Augmentin Allergy (Uncoded 05/06/25 21:31) Hives Medication List - Last Reconciled 05/06/25 by DALY Gillette-RUSTAM ascorbic acid (vitamin C) 1 g PO DAILY aspirin 81 mg PO DAILY ciprofloxacin HCl (Cipro) 250 mg PO BID 7 days cranberry 500 mg PO DAILY estradiol 0.01%(0.1mg/gram) vaginally 3 times a week; pea sized amount to urethra 3 times a week 90 days mecobalamin (vitamin B12) 3,000 mcg PO DAILY methenamine hippurate 1 g PO DAILY 90 days pravastatin 20 mg PO DAILY prednisolone acetate 1% drps ophthalmic (eye) sertraline 75 mg PO yucca caps PO HPI Comments Details: Yoselyn is a very pleasant 89-year-old female patient of Dr. Chowdary. She has a past medical history of pyelonephritis, overactive bladder, osteoporosis, depression, nephrolithiasis, memory impairment, hyperparathyroidism, hyper lipidemia, breast cancer, balance disorder, recurrent urinary tract infections and abdominal aortic aneurysm. She presents to the office today for a follow up of her recurrent UTIs, nephrolithiasis, and pyelonephritis. She reports her ongoing issues with shortness of breath and dizziness and has been following up with her PCP regarding this issue. She reports compliance with Estrace cream as prescribed. Recent retroperitoneal ultrasound results reviewed with the patient today 05/20 bilateral kidneys are normal in size and echotexture. No hydronephrosis bilaterally. The urinary bladder is unremarkable. Postvoid bladder volume 30 mL. Per radiology report. In discussion with the patient today she does feel she has a urinary tract infection as she has been experiencing issues with urinary urgency and dysuria. In office urinalysis results reviewed with the patient today positive leukocytes positive nitrates. Patient with multiple urinary tract infections over the last year. Most recent urine culture 03/19 through [facility] noted Pseudomonas aeruginosa. We did discussed further interventions of recurrent urinary tract infections. PVR 9 mL. She denies hematuria, foul smelling urine, changes to urinary stream, flank pain, fever, and or chills. She discusses typically her symptoms of urinary tract infections are hallucinations and sticky pubic hairs. She otherwise offers no other issues or concerns at this time. 11/17 Negative for high-grade urothelial carcinoma PFSH Medical History Pyelonephritis Palpitations Overactive bladder Osteoporosis Major depression in partial remission Left ureteral stone Kidney stone Isolated memory impairment Impaired fasting glucose Hyperparathyroidism Hyperlipidemia History of breast cancer Fuchs' corneal dystrophy Balance disorder Abdominal aortic aneurysm Review of Systems Const Reports as per HPI Eyes Reports no additional complaints ENT Reports no additional complaints Card Reports as per HPI Resp Reports no additional complaints GI Reports no additional complaints Reports as per HPI Musc Reports as per HPI Neuro Reports as per HPI Psych Reports as per HPI Endo Reports as per HPI Jeffrey/Lymph Reports no additional complaints Aller/Immun Reports no additional complaints Physical Exam Const General: cooperative, healthy appearing, comfortable, no acute distress, well developed, alert and awake Nutritional Appearance: average body habitus Orientation/consciousness: patient oriented x3 Limitations: ambulation with cane HEENT Head: Yes normal to inspection, Yes normocephalic and Yes atraumatic Ears: hearing grossly normal bilaterally Eyes General: appearance normal, both eyes and all related structures Neck Neck: Yes normal visual inspection and Yes trachea midline Chest Chest palpation & inspection: normal inspection of the chest Resp Effort & Inspection: normal respiratory effort and able to speak in complete sentences Cardio Rate: regular rate GI Inspection: Yes normal to inspection General: Yes no CVA tenderness Back/Spine/Pelvis Back: no CVA tenderness Skin General skin exam: no rashes or lesions noted Neuro General: patient oriented x3 Extrem General: Yes normal to inspection Psych Appearance: grossly normal and well kempt Mental Status: mental status grossly normal Speech and movement: Normal speech and movement present and Clear speech present Affect: normal affect Attitude: cooperative Thought process: Normal thought process present Thought content: Normal thought content present Insight: Fair insight present (Psych) Judgement: Fair judgement present (Psych) Office Procedures Post Void Residual Post Residual Void Post Void Residual (PVR): 9 33616-[id number] Void Residual by ultrasound Results AMB Urinalysis, Automated UA Leukoctes 500 Malvin/uL Last Edit by ELLIE Randall on 05/06/25 16:40 UA Nitrite Positive Last Edit by ELLIE Randall on 05/06/25 16:40 UA Urobilinogen 3.5 mg/dL Last Edit by Hesham Messina [facility] on 05/06/25 16:4 0 UA Protein 15 mg/dL Last Edit by Hesham Messina [facility] on 05/06/25 16:40 UA pH 6.0 Last Edit by Hesham Messina [facility] on 05/06/25 16:40 UA Blood 10 Jermaine/uL Last Edit by Hesham Messina [facility] on 05/06/25 16:40 UA Specific [place] 1.020 Last Edit by Hesham Messina [facility] on 05/06/25 16: 40 UA Ketone Negative Last Edit by Hesham Messina [facility] on 05/06/25 16:40 UA Bilirubin 0 mg/dL Last Edit by Hesham Messina [facility] on 05/06/25 16:40 UA Glucose 0 mg/dL Last Edit by Hesham Messina [facility] on 05/06/25 16:40 Results Reviewed Results Reviewed: Laboratory Last Values Urine pH (Auto) 6.0 05/06/25 16:38 Specific [place] (Auto) 1.020 05/06/25 16:38 Urine Protein (Auto) 15 mg/dL 05/06/25 16:38 Glucose (UA)(Auto) 0 mg/dL 05/06/25 16:38 Urine Ketones (Auto) Negative 05/06/25 16:38 Urine Blood (Auto) 10 Jermaine/uL 05/06/25 16:38 Urine Nitrite (Auto) Positive 05/06/25 16:38 Urine Bilirubin (Auto) 0 mg/dL 05/06/25 16:38 Urine Urobilinogen (Auto) 3.5 mg/dL 05/06/25 16:38 Leukocyte Esterase (Auto) 500 Malvin/uL 05/06/25 16:38 Date of Service: 04/28/25 Procedure(s): US retroperitoneal comp US Renal Comparison: None provided Findings: Right kidney normal size and echotexture, 9.6 cm length. Left kidney normal size and echotexture, 9.6 cm length. No hydronephrosis of either kidney. Normal color Doppler. Urinary bladder is unremarkable. Prevoid volume one hundred ninety-nine mL. Postvoid volume 30 mL. IMPRESSION: Unremarkable kidneys without hydronephrosis. Assessment & Plan Assessment & Plan (1) Recurrent urinary tract infection: Code(s): N39.0 - Urinary tract infection, site not specified Category: Medical (2) Urinary tract infection: Code(s): N39.0 - Urinary tract infection, site not specified Category: Medical Plan In office urinalysis results with the patient today; as noted above; will send for urine culture. PVR 9 mL Start Cipro as discussed and prescribed. Recent retroperitoneal ultrasound results reviewed with the patient today; as noted above. We did discuss near future cystoscopy for further assessment evaluation. We discussed initiation of methenamine and vitamin-C status post completion of antibiotic therapy. Continue Estrace cream. Discussed UTI prevention with D mannose supplement, vitamin-C, increasing fluid intake, behavioral therapy with timed voiding, perineal hygiene and postcoital voiding, and management of constipation with stool softeners and increased fiber intake. We did discussed correlation of constipation and recurrent urinary tract infections. All questions were answered. Follow-up in 1-3 months with PVR; or sooner with any issues, concerns, and or questions. Orders: Orders Urine Culture Today N39.0 - Urinary tract infection, site not specified AMB Urinalysis Automated Today Z13.9 - Encounter for screening, unspecified Medications: New methenamine hippurate 1 g PO DAILY 90 tabs 1RF 90 days N39.0 - Urinary tract infection, site not specified Changed From ciprofloxacin HCl (Cipro) 250 mg PO BID 7 days 14 tabs 0RF To ciprofloxacin HCl (Cipro) Once completed with antibiotic therapy please start methenamine and vitamin-C as discussed. Hold methenamine while on any antibiotic therapy 250 mg PO BID 14 tabs 0RF 7 days Patient Instructions: The patient had an opportunity to ask questions regarding the treatment plan. All questions were answered. Physical exam, labs, and imaging were discussed and reviewed in detail. As well as risks, benefits, and discussion of treatment choices. No major barriers to understanding were identified. The patient expressed understanding and agreement with the above treatment plan. The patient was made aware they should contact our office by phone for worsening of their current condition, the appearance of new symptoms, or with any questions or concerns. Compliance is encouraged with any medications and follow up testing that is ordered. It is a privilege to be allowed the opportunity to participate in? your urological care.? Again, if you have any questions or concerns If you have any questions or concerns please do not hesitate to contact me. The office is [phone]. This note is constructed using voice recognition software. While every effort has been made to ensure accuracy top cager errors may have been included. Yours sincerely, FRANCISCO Gillette Coding Level of Care Code Est Pt Level 4 (70459) Complex EM visit Add On G2211 Diagnoses Recurrent urinary tract infection N39.0 Urinary tract infection N39.0 CPT Codes Post Residual Void - PVR CPT Code: 06770-Icij Void Residual by ultrasound ([id number])
== END 2025-05-06 15:22 | disposition home or self-care (01) ==
LOC: HO.HUSH 14:26
PROVIDERS: PCP Physician Assistant; Visit Provider Nurse Practitioner Family
DX: N39.0 Urinary tract infection, site not specified (principal); Z13.9 Encounter for screening, unspecified
CPT/HCPCS: 99214; G2211